=== PATIENT | male | born 1955 | race Caucasian/White ===

== ENCOUNTER 2018-04-16 09:36 | Emergency (ER) | payer SELFPAY ==
[~2018-04-16] VITALS: Ht 188 cm; Wt 106.6 kg
[2018-04-16] MEDS ORDERED: LOSA25 (10:08)
[2018-04-16 10:39] LABS: Source, Urine Clean Catch
[2018-04-16 10:50] LABS: Bilirubin, Urine Neg (Neg); Blood, Urine 1+ (Neg); Glucose Qualitative, Urine Neg (Neg); Ketones, Urine Neg (Neg); Leukocyte Esterase, Urine Neg (Neg); Nitrite, Urine Neg (Neg); Protein, Urine Neg (Neg); Specific Gravity, Urine 1.015 (1.003-1.022); Urobilinogen, Urine NORM (Normal)
[2018-04-16 10:59] LABS: Appearance, Urine Clear (Clear); Color, Urine Yellow (P-Yellow)
[2018-04-16 11:00] LABS: Red Blood Cells, Urine 0-2 /hpf (0-2); White Blood Cells, Urine Rare /hpf (0-5)
[2018-04-16 11:01] LABS: Bacteria Not Seen /hpf; Squamous Epithelial Cells Not Seen /hpf (Few)
[2018-04-16 11:30] LABS: Calcium, Ionized (POC) 1.19 mmol/L (1.10-1.46); Chloride (POC) 105 mmol/L (98-108); Glucose (ISTAT POC) 128 mg/dL (70-99); Hemoglobin (POC) 16.7 g/dL (13.5-17.5); Sodium (POC) 142 mmol/L (135-148); Total CO2 (POC) 27 mmol/L (21-32)
[2018-04-16] MEDS ORDERED: IBUP800 PO (12:20)
[2018-04-16] MEDS ORDERED: Voltaren100 GM TOP (12:20)
[2018-04-16] MEDS ORDERED: Percocet 7.5-31 EACH PO (12:20)
[2018-04-16] MEDS ORDERED: Zofran Odt4 MG SL (12:20)
[2018-04-16] MEDS ORDERED: CYCL10 PO (12:20)
== END 2018-04-16 12:31 | disposition home or self-care (01) ==
LOC: ER 09:36
PROVIDERS: Physician Assistant
DX: M25.552 Pain in left hip (principal); I10 Essential (primary) hypertension; Z79.899 Other long term (current) drug therapy; Z87.891 Personal history of nicotine dependence
CPT/HCPCS: 36415; 73502; 74176; 80047; 81001; 85014; 96372; 96374; 99284-25; J1170; J1885